=== PATIENT | female | born 1950 | race Caucasian/White ===

== ENCOUNTER 2024-05-15 18:50 | Emergency (ER) | payer MEDICARE, OTHER ==
[~2024-05-15] VITALS: Ht 157.5 cm; Wt 65.9 kg
[~2024-05-15 18:50] MED LIST: HYDR-3972 PO; NO HOME MEDS
[2024-05-15] MEDS: ketorolac trometh 15mg/ml vial 15 MG/ML ML IM ONE (19:55)
[2024-05-15 21:22] VITALS: BP 136/81; PULSE 77; RESP 16; TEMP 98.2; O2SAT 97
== END 2024-05-15 21:26 | disposition home or self-care (01) ==
LOC: ER 18:50
DX: S30.0XXA Contusion of lower back and pelvis, initial encounter (principal); M25.511 Pain in right shoulder; Z88.5 Allergy status to narcotic agent; Z79.899 Other long term (current) drug therapy; W19.XXXA Unspecified fall, initial encounter; Y93.89 Activity, other specified; Y92.89 Other specified places as the place of occurrence of the external cause; Y99.8 Other external cause status
CPT/HCPCS: 73521; 96372; 99284; J1885